=== PATIENT | female | born 1995 | race Caucasian/White ===

== ENCOUNTER 2023-10-03 09:44 | Outpatient (AMB) | payer OTHER, SELFPAY ==
--- NOTE | 2023-10-03 10:00 | MHC.PC.OV ---
Vital Signs 10/03/23 10:02 Height 5 ft 6 in Weight 178 lb BMI 28.7 BP 108/60 Blood Pressure Location Lt brachial Position Sitting Respiration 12 Pulse 97 Pulse Source Pulse Oximeter Pulse Oximetry (%) 98 Oxygen Delivery Method Room Air Intake Visit Reasons: Physical Exam Intake Note: Patient is here to establish care, patient is requesting a physical today, patient reports she has concerns seh would like to discuss with her provider. Agent Licensing Clerk Required: No Allergies nitrofurantoin [Macrobid] Allergy (Unknown, Verified 10/03/23 10:05) Unknown sulfasalazine [Sulfazine] Allergy (Unknown, Verified 10/03/23 10:05) Unresponsive Medication List - Last Reconciled 10/03/23 by Sheeba Pierson MD doxycycline hyclate 100 mg PO BID 10 days triamcinolone acetonide 0.1% 1 appl topical BID valacyclovir (Valtrex) 2,000 mg (2 x 1 gram) PO BID PRN 1 day Tobacco use date assessed: 10/03/23 Dental Screening Dental Screen Date: 10/03/23 Did you have a dental visit in the last 12 months?: Yes Did you have a dental problem in the last 6 months where you did not have access to dental care?: No Was dental information given to patient?: Patient has dentist HPI HPI Comments History of Present Illness Details The patient is a 28 year old with no significant past medical history presenting for physical exam. Transferring from [facility] Gets ear fullness, feels like she is under water. Worse over the past month but started 7 or 8 months ago. Thought initially stress etc. teeth and face have been painful Patient took zyrtec for skin itching within the past year but does not take regularly. 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 Has eczema on hands. Works in a lab. Uses gloves, vaseline at night Needs classified ad taker for annual exam ROS see HPI PHYSICAL EXAM: GENERAL: Alert and oriented x 3. NAD EYES: EOMI. Anicteric. HENT: Moist mucous membranes. No scleral icterus. Bilateral middle ear effusions-clear. some narrowing of right canal No cervical lymphadenopathy. LUNGS: Clear to auscultation bilaterally. CARDIOVASCULAR: Regular rate and rhythm. No murmur. No JVD. ABDOMEN: Soft, non-tender +bs EXTREMITIES: No edema. Non-tender. SKIN: No rashes or lesions. Warm. NEUROLOGIC: No focal neurological deficits. CN II-XII grossly intact PSYCHIATRIC: Cooperative. Appropriate mood and affect [facility] Medical History Chronic right hip pain Recurrent UTI Ganglion cyst of dorsum of left wrist Surgical History History of surgical removal of ganglion cyst History of hip surgery Family History Father Hypertension Clotting disorder Mother High cholesterol Paternal Grandmother Leukemia Maternal Grandfather Skin cancer Other No family history of alcoholism Social History Household Members: Spouse Housing: House Are you a primary animal care attendant to a significant other at home: No Do you presently have visiting nurse or other home services: No 75 years or older and lives alone: No Alcohol intake: current Alcohol intake frequency: holidays/special occasions only Patient Tobacco Use Status: Never used Tobacco e-Cigarette/Vaping Use: Never Used service: Yes (IEV) Current occupational status: employed Current occupation: [employer] Current occupational exposures/hazards: Yes Cognitive needs: No Hearing needs: Yes (headaches associated with ear pressure) Vision needs: Yes (wears glasses) Questionnaire PHQ-9 Over the last 2 weeks, how often have you been bothered by any of the following problems? 1. Little interest or pleasure in doing things: not at all 2. Feeling down, depressed, or hopeless: not at all 3. Trouble falling or staying asleep, or sleeping too much: not at all 4. Feeling tired or having little energy: several days 5. Poor appetite or overeating: not at all 6. Feeling bad about yourself - or that you are a failure or have let yourself or your family down: not at all 7. Trouble concentrating on things, such as reading the newspaper or watching television: not at all 8. Moving or speaking so slowly that other people could have noticed. Or the opposite - being so fidgety or restless that you have been moving around a lot more than usual: not at all 9. Thoughts that you would be better off or of hurting yourself in some way: not at all Total score: 1 Depression Screening Interpretation: Negative (NEG) Depression Screening Done: Yes 23793 - PHQ-9 Billing: Yes Source: Developed by Drs. Derrek Burgos, Gurdeep Franklin and colleagues, with an educational galina from [employer]. Thrive Questionnaire Date Thrive assessed: 10/03/23 I am a: Patient What is your living situation today?: I have a steady place to live Within the past 12 months, did the food you bought not last and you didn't have the money to get more?: Never true Within the past 12 months, did you worry whether your food would run out before you got money to buy more?: Never true Do you have trouble paying for medicines?: No Do you have trouble getting transportation to medical appointments?: No Do you have trouble paying your heating and electricity bill?: No Do you have trouble taking care of your child, family member or friend?: No Do you have trouble with day-to-day activities such as bathing, preparing meals, shopping, managing finances, etc.?: No Are you currently unemployed and looking for a job?: No Are you interested in more education?: No Please select the resources that you would like help with: None Currently or been in a relationship where the following occur: No concerns reported THRIVE Score: 0 ZAFAR-7 AMB Questionnaire ZAFAR-7 Date ZAFAR - 7 assessed: 10/03/23 Feeling nervous, anxious, or on edge: 0 = Not at all Not being able to stop or control worryin = Not at all Worrying too much about different things: 0 = Not at all Trouble relaxin = Not at all Being so restless that it is hard to sit still: 0 = Not at all Becoming easily annoyed or irritable: 0 = Not at all Feeling afraid as if something awful might happen: 0 = Not at all Total ZAFAR-7 score (0-4 normal; 5-9 mild; 10-14 moderate; 15-21 severe): 0 Source: Developed by Drs. Derrek Burgos, Gurdeep Franklin and colleagues, with an educational galina from [employer]. ZAFAR-7 Assessment Billing ZAFAR-7 Assessment Tool: ZAFAR-7 Assessment 33322 Physical exam (Primary Care) Vital Signs: Last Vital Signs Pulse 97 10/03/23 10:02 Resp 12 10/03/23 10:02 BP 108/60 10/03/23 10:02 Pulse Ox 98 10/03/23 10:02 Oxygen Delivery Method Room Air 10/03/23 10:02 BMI result Body Mass Index 28.7 Tobacco/Smoking Status: Tobacco use Status Tobacco use date assessed 10/03/23 10/03/23 10:11 Patient Tobacco Use Status Never used Tobacco 10/03/23 10:12 e-Cigarette/Vaping Use Never Used 10/03/23 10:12 PHQ-9: PHQ-9 Score PHQ-9: Total score 1 10/03/23 10:11 Depression Screening Interpretation: Negative (NEG) Thrive Assessment: Date of Thrive Assessment Date Thrive assessed 10/03/23 10/03/23 10:11 Currently or been in a relationship where the following occur: No concerns reported Assessment and Plan Assessment & Plan (1) Physical exam: Code(s): Z00.00 - Encounter for general adult medical examination without abnormal findings Plan: Preventive measures discussed Referred to central office inspector for routine care (2) Sinus congestion: Code(s): R09.81 - Nasal congestion Plan: Doxycycline x 10 days May start daily zyrtec, nasal spray prn (3) Eczema: Code(s): L30.9 - Dermatitis, unspecified Qualifiers: Eczema type: flexural Qualified Code(s): L20.82 - Flexural eczema (4) Atopy: Code(s): Z88.9 - Allergy status to unspecified drugs, medicaments and biological substances Orders: Referrals [employer] [employer] Referral Z00.00 - Encounter for general adult medical examination without abnormal findings Medications: New valacyclovir (Valtrex) 2,000 mg (2 x 1 gram) PO BID 1 day PRN 20 tabs 3RF cold sore triamcinolone acetonide 0.1% 1 appl topical BID 30 grams 3RF doxycycline hyclate 100 mg PO BID 10 days 20 caps 3RF Coding Level of Care Code New Pt Prev Care 18-39yr(98920 Diagnoses Physical exam Z00.00 Sinus congestion R09.81 Flexural eczema L20.82 Eczema type: flexural Atopy Z88.9 Additional Codes ZAFAR-7 Assessment Billing - ZAFAR-7 Assessment Tool: ZAFAR-7 Assessment [id number] ([id number])
[2023-10-03 10:02] VITALS: BP 108/60; PULSE 97; RESP 12; O2SAT 98; BMI 28.7
== END 2023-10-03 10:46 | disposition home or self-care (01) ==
PROVIDERS: Visit Provider Internal Medicine
DX: Z00.00 Encounter for general adult medical examination without abnormal findings (principal); R09.81 Nasal congestion; L20.82 Flexural eczema; Z88.9 Allergy status to unspecified drugs, medicaments and biological substances
CPT/HCPCS: 99385

== ENCOUNTER 2023-10-27 14:44 | Outpatient (REF) | payer OTHER, SELFPAY ==
--- NOTE | ~2023-10-27 | XR_ITS ---
EXAMINATION: XR SINUSES CLINICAL INFORMATION: Nasal congestion, bilateral sinus pain. COMPARISON: None available. TECHNIQUE: 4 views of the sinuses. FINDINGS: No gross air-fluid levels appreciated in the maxillary sinuses. Right frontal sinus is somewhat hypoplastic relative to the left. Limited visualization due to overlying bony structures. Dedicated CT scan of the sinuses recommended as this study is much more sensitive for evaluation of sinus pathology. XR/XR sinus min 3V IMPRESSION: No gross air-fluid levels appreciated in the maxillary sinuses. Right frontal sinus is somewhat hypoplastic relative to the left. Limited visualization due to overlying bony structures. Dedicated CT scan of the sinuses recommended as this study is much more sensitive for evaluation of sinus pathology.
== END 2023-10-27 14:45 | disposition home or self-care (01) ==
LOC: HO.XRAY 14:44
PROVIDERS: PCP Internal Medicine; Visit Provider Internal Medicine
DX: R09.81 Nasal congestion (principal)
CPT/HCPCS: 70220

== ENCOUNTER 2024-02-15 16:03 | Outpatient (REF) | payer OTHER, SELFPAY ==
--- NOTE | ~2024-02-15 | MR_ITS ---
EXAMINATION: MR BRAIN WITHOUT AND WITH CONTRAST CLINICAL INFORMATION: Headache. COMPARISON: None available. TECHNIQUE: Multiplanar, multisequence MRI of the brain was obtained using a skull base protocol without and following the administration of 7.5 mL of Gadavist intravenous contrast. FINDINGS: No focal restricted diffusion is demonstrated to suggest acute or subacute cerebral ischemia. No evidence of acute or chronic hemorrhagic products on heme-sensitive imaging. Few nonspecific scattered foci of T2 FLAIR hyperintensity within the bifrontal lobes. No additional parenchymal signal abnormalities. The ventricles are normal in morphology and size. No abnormal mass effect. No midline shift. Normal appearance of the pituitary gland. Normal positioning of the cerebellar tonsils. No mass of the cerebellopontine angles. Normal appearance of the cranial nerve V, VII, and VIII nerve roots. No edema or vascular loops near the nerve root entry sites. Normal appearance of the internal auditory canals without enhancing mass lesions. No abnormal enhancement along the course of the facial nerves bilaterally. Normal appearance of the labyrinthine structures without loss of T2 signal or abnormal enhancement. Normal arterial and venous vascular flow voids are present. No abnormal intracranial contrast enhancement. Normal, homogeneous marrow signal. Mild mucosal thickening of the paranasal sinuses. No signal abnormalities within the mastoids. MR/MR head/brain wo/w con IMPRESSION: 1. No acute intracranial abnormalities. No abnormal intracranial enhancement. 2. Mild nonspecific white matter changes. 3. No additional MRI abnormalities to explain the patient's symptoms. Electronically signed by: Herrera Pelaez DO 03/10/2024 07:24 AM [facility]
[2024-02-15] MEDS: gadobutroL 7.5 ML VIAL IVPUSH (16:44)
== END 2024-02-15 16:04 | disposition home or self-care (01) ==
LOC: HO.MRI 16:03
PROVIDERS: PCP Internal Medicine; Visit Provider Internal Medicine
DX: R51.9 Headache, unspecified (principal); H81.90 Unspecified disorder of vestibular function, unspecified ear; H92.09 Otalgia, unspecified ear; G89.29 Other chronic pain
CPT/HCPCS: 70553; A9585

== ENCOUNTER 2024-03-11 10:24 | Outpatient (REF) | payer OTHER, SELFPAY ==
--- OUTSIDE RECORDS SUMMARY | 2024-03-11 10:27 | XMS_ITS ---
Author Name [facility] Organization Unknown Problems Problem Status Onset Date Problem Type Date of Resolution Source Nonintractable headache, unspecified chronicity pattern, unspecified headache type active [facility]
[2024-03-11 12:34] LABS: Syphilis Screen Nonreactive (Nonreactive)
[2024-03-12 18:14] LABS: RPR Rapid Plasma Reagin NON-REACTIVE (NON-REACTIVE)
[2024-03-17 13:58] LABS: Vitamin D 25-OH, D2 <4 ng/mL; Vitamin D 25-OH, D3 26 ng/mL; Vitamin D 25-OH, Total 26 ng/mL (30-100)
== END 2024-03-11 10:25 | disposition home or self-care (01) ==
LOC: HO.LAB 10:24
PROVIDERS: PCP Internal Medicine; Visit Provider Internal Medicine
DX: R42 Dizziness and giddiness (principal)
CPT/HCPCS: 36415; 82306; 86592; 86780

== ENCOUNTER 2024-10-11 08:34 | Outpatient (AMB) | payer OTHER, SELFPAY ==
--- OUTSIDE RECORDS SUMMARY | 2024-10-11 08:40 | XMS_ITS | Encounter Summary ---
Author Organization [facility] Address [address] [place] [address] Phone Care Team Providers Care C Software Developer Name Role Phone Wilma Spencer MD Primary Care Provider [phone] Encounter Details Date Type Department Care Team (Late st Contact Info) Description 11/06/2016 Conversion Encounter [facility] - [address], [address] [place] [address] Wilma Spencer MD [address] [place] [address] Social History Tobacco Use Types Packs/Day Years Used Date Smoking Tobacco: Never Assessed Comments Unknown Sex and Gender Information Value Date Recorded Sex Assigned at Not on file Legal Sex Female 6:30 PM EDT Gender Identity Not on file Sexual Orientation Not on file documented as of this encounter Plan of Treatment Not on file documented as of this encounter Visit Diagnoses Not on filedocumented in this encounter Care Teams C Software Developer Relationship Specialty Start Date End Date Wilma Spencer MD [address] [place] [address] PCP - General 08/12/16 09/24/20 documented as of this encounter
--- OUTSIDE RECORDS SUMMARY | 2024-10-11 08:40 | XMS_ITS | Patient Health Record ---
Author Organization [facility] Address [address] [place] [address] Care Team Providers Care Signal Supervisor Name Role Phone Fransico Guzman M.D Primary Care Provider Keyanna Bey Unavailable [phone] Reason For Referral No Information Medications Medication SIG (Take, Route, Fr equency, Duration) Notes Start Date End Date Status ISOtretinoin 40 MG Orally A ctive Problems No Known Problems Plan Of Treatment Pending Test Test Name Order Date [id number] Plate 12/22/2014 [id number] Plate Each Additional Insurance Providers Payer Name Payer Address Payer Phone Subscriber Number Group Number Insured Name Patient Relationship to Insured Coverage Start Date Coverage End Date [facility] [address] [facility] [id number] Derrek Nagel Child - Insured has Financial Responsibility Medical (General) History Medical History History ICD Code Back,Hip,and Knee pain keloids Broken bones Hip Fracture Surgical History Surgery Date(Month/Year)
--- OUTSIDE RECORDS SUMMARY | 2024-10-11 08:40 | XMS_ITS | Encounter Summary ---
Author Organization [facility] Address [address] [place] [address] Care Team Providers Care Composition Siding Worker Name Role Phone Sheeba Pierson MD Primary Care Provider [phone] Encounter Details Date Type Department Care Team (Late st Contact Info) Description 03/10/2024 Scanned Document [address] [id number] Jesica Chery PA-C [address] [place] [id number] Social History Tobacco Use Types Packs/Day Years Used Date Smoking Tobacco: Never Assessed Comments Unknown Sex and Gender Information Value Date Recorded Sex Assigned at Female 03/15/2024 9:43 AM EST Legal Sex Female 2:18 PM EST Gender Identity Female 03/15/2024 9:43 AM EST Sexual Orientation Not on file documented as of this encounter Plan of Treatment Upcoming Encounters Date Type Department Care Team (Late st Contact Info) Description 10/18/2024 1:00 PM EDT Office Visit [address] [address] Jesica Chery PA-C [address] [place] [id number] documented as of this encounter Visit Diagnoses Not on filedocumented in this encounter Care Teams Composition Siding Worker Relationship Specialty Start Date End Date Sheeba Pierson MD [address] [place] [address] [place] [id number] PCP - General Internal Medicine 02/13/24 documented as of this encounter
--- NOTE | 2024-10-11 08:41 | A.OFFPC_ITS ---
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 Allergies nitrofurantoin (Macrobid) Allergy (Unknown, Verified 10/11/24 08:41) Unknown sulfasalazine (Sulfazine) Allergy (Unknown, Verified 10/11/24 08:41) Unresponsive Tobacco use date assessed: 10/11/24 Dental Screening Dental Screen Date: 10/11/24 Did you have a dental visit in the last 12 months?: Yes Did you have a dental problem in the last 6 months where you did not have access to dental care?: No Was dental information given to patient?: Patient has dentist HPI HPI Comments History of Present Illness Details The patient is a 29 year old with a past medical history of headaches, eczema, thyroid nodule presenting for physical exam Headaches: She is following with neurology. Headaches with improved control. She would like to consider ccb or bb as her bp has been running 120s, 130s. Today is at her old average in the 90s. History of thyroid nodule had biopsy. 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 Had us ROS see HPI PHYSICAL EXAM: GENERAL: Alert and oriented x 3. NAD EYES: EOMI. Anicteric. HENT: Moist mucous membranes. No scleral icterus. No cervical lymphadenopathy. Left thyroid enlargement LUNGS: Clear to auscultation bilaterally. CARDIOVASCULAR: Regular rate and rhythm. No murmur. No JVD. ABDOMEN: Soft, non-tender +bs EXTREMITIES: No edema. Non-tender. SKIN: No rashes or lesions. Warm. NEUROLOGIC: No focal neurological deficits. CN II-XII grossly intact PSYCHIATRIC: Cooperative. Appropriate mood and affect [facility] Medical History Chronic right hip pain Recurrent UTI Ganglion cyst of dorsum of left wrist Surgical History History of surgical removal of ganglion cyst History of hip surgery Family History Father Hypertension Clotting disorder Mother High cholesterol Paternal Grandmother Leukemia Maternal Grandfather Skin cancer Other No family history of alcoholism Social History Household Members: Spouse Housing: House Are you a primary senior care specialist to a significant other at home: No Do you presently have visiting nurse or other home services: No 75 years or older and lives alone: No Alcohol intake: current Alcohol intake frequency: holidays/special occasions only Patient Tobacco Use Status: Never used Tobacco e-Cigarette/Vaping Use: Never Used Substance Use Type: Marijuana service: Yes ([employer]) Current occupational status: employed Current occupation: [employer] Current occupational exposures/hazards: Yes Cognitive needs: No Hearing needs: Yes (headaches associated with ear pressure) Vision needs: Yes (wears glasses) Questionnaire PHQ-9 Over the last 2 weeks, how often have you been bothered by any of the following problems? 1. Little interest or pleasure in doing things: not at all 2. Feeling down, depressed, or hopeless: not at all 3. Trouble falling or staying asleep, or sleeping too much: more than half the days 4. Feeling tired or having little energy: more than half the days 5. Poor appetite or overeating: not at all 6. Feeling bad about yourself - or that you are a failure or have let yourself or your family down: not at all 7. Trouble concentrating on things, such as reading the newspaper or watching television: not at all 8. Moving or speaking so slowly that other people could have noticed. Or the opposite - being so fidgety or restless that you have been moving around a lot more than usual: not at all 9. Thoughts that you would be better off or of hurting yourself in some way: not at all Total score: 4 Depression Screening Interpretation: Negative Depression Screening Done: Yes 68575 - PHQ-9 Billing: Yes Source: Developed by Drs. Derrek Burgos, Mariam He, Gurdeep Shabazz and colleagues, with an educational galina from [employer] Thrive Questionnaire Date Thrive assessed: 10/09/24 I am a: Patient What is your living situation today?: I have a steady place to live Within the past 12 months, did the food you bought not last and you didn't have the money to get more?: Never true Within the past 12 months, did you worry whether your food would run out before you got money to buy more?: Never true Do you have trouble paying for medicines?: No Do you have trouble getting transportation to medical appointments?: No Do you have trouble paying your heating and electricity bill?: No Do you have trouble taking care of your child, family member or friend?: No Do you have trouble with day-to-day activities such as bathing, preparing meals, shopping, managing finances, etc.?: No Are you currently unemployed and looking for a job?: No Are you interested in more education?: No Please select the resources that you would like help with: None Currently or been in a relationship where the following occur: No concerns reported THRIVE Score: 0 AUDIT C Alcohol Use Questionnaire (AUDIT-C) 1. How often do you have a drink containing alcohol?: Monthly or less 2. How many drinks containing alcohol do you have on a typical day when you are drinking?: 1 or 2 3. How often do you have six or more drinks on one occasion?: Never Total Score: 1 ZAFAR-7 AMB Questionnaire ZAFAR-7 Date ZAFAR - 7 assessed: 10/11/24 Feeling nervous, anxious, or on edge: 3 = Nearly every day Not being able to stop or control worryin = More than half the days Worrying too much about different things: 2 = More than half the days Trouble relaxin = Nearly every day Being so restless that it is hard to sit still: 1 = Several days Becoming easily annoyed or irritable: 0 = Not at all Feeling afraid as if something awful might happen: 3 = Nearly every day Total ZAFAR-7 score (0-4 normal; 5-9 mild; 10-14 moderate; 15-21 severe): 14 Source: Developed by Drs. Derrek Burgos, Mariam He, Gurdeep Shabazz and colleagues, with an educational galina from [employer] ZAFAR-7 Assessment Billing ZAFAR-7 Assessment Tool: ZAFAR-7 Assessment 18978 Physical exam (Primary Care) Vital Signs: Last Vital Signs Temp 98.2 F 10/11/24 08:42 Pulse 95 10/11/24 08:42 Resp 12 10/11/24 08:42 BP 94/76 10/11/24 08:42 Pulse Ox 99 10/11/24 08:42 Oxygen Delivery Method Room Air 10/11/24 08:42 BMI result Body Mass Index 29.3 Tobacco/Smoking Status: Tobacco use Status Tobacco use date assessed 10/11/24 10/11/24 08:46 Patient Tobacco Use Status Never used Tobacco 10/11/24 08:46 e-Cigarette/Vaping Use Never Used 10/11/24 08:46 PHQ-9: PHQ-9 Score PHQ-9: Total score 4 10/11/24 08:46 Depression Screening Interpretation: Negative Thrive Assessment: Date of Thrive Assessment Date Thrive assessed 10/09/24 10/11/24 08:46 Currently or been in a relationship where the following occur: No concerns reported Coding Level of Care Code Est Pt Prev Care 18-39y(71795) Diagnoses Encounter for physical examination Z00.00 Additional Codes ZAFAR-7 Assessment Billing - ZAFAR-7 Assessment Tool: ZAFAR-7 Assessment 21465 ([id number]) PHQ-9 - 25952 - PHQ-9 Billing: Yes ([id number]) Assessment & Plan Assessment & Plan (1) Encounter for physical examination: Code(s): Z00.00 - Encounter for general adult medical examination without abnormal find ings Plan Physical exam Interval history reviewed History of thyroid nodule-tfts and us ordered eczema joint pain-labs ordered. tretinoin order Headaches-continue follow up with neurology Orders: Orders Comprehensive Met. Panel Today L20.82 - Flexural eczema, R42 - Dizziness and giddiness, Z13.0 - Encounter for screening for diseases of the blood and blood- forming organs and certain disorders involving the immune mechanism, Z13.220 - Encounter for screening for lipoid disorders, Z13.228 - Encounter for screening for other metabolic disorders Free T4 (Free Thyroxine) Today L20.82 - Flexural eczema, R42 - Dizziness and g iddiness, Z13.0 - Encounter for screening for diseases of the blood and blood- forming organs and certain disorders involving the immune mechanism, Z13.220 - Encounter for screening for lipoid disorders, Z13.228 - Encounter for screening for other metabolic disorders Triiodothyronine T3 Free Today L20.82 - Flexural eczema, R42 - Dizziness and giddiness, Z13.0 - Encounter for screening for diseases of the blood and blood- forming organs and certain disorders involving the immune mechanism, Z13.220 - Encounter for screening for lipoid disorders, Z13.228 - Encounter for screening for other metabolic disorders Thyroid Peroxidase Antibodies Today L20.82 - Flexural eczema, R42 - Dizziness and giddiness, Z13.0 - Encounter for screening for diseases of the blood and blood-forming organs and certain disorders involving the immune mechanism, Z13.220 - Encounter for screening for lipoid disorders, Z13.228 - Encounter for screening for other metabolic disorders Rheumatoid Factor Today L20.82 - Flexural eczema, R42 - Dizziness and giddiness, Z13.0 - Encounter for screening for diseases of the blood and blood- forming organs and certain disorders involving the immune mechanism, Z13.220 - Encounter for screening for lipoid disorders, Z13.228 - Encounter for screening for other metabolic disorders Cyclic Citrullinated Peptide Today L20.82 - Flexural eczema, R42 - Dizziness and giddiness, Z13.0 - Encounter for screening for diseases of the blood and blood-forming organs and certain disorders involving the immune mechanism, Z13.220 - Encounter for screening for lipoid disorders, Z13.228 - Encounter for screening for other metabolic disorders Complete Blood Count Auto Diff Today L20.82 - Flexural eczema, R42 - Dizziness and giddiness, Z13.0 - Encounter for screening for diseases of the blood and blood-forming organs and certain disorders involving the immune mechanism, Z13.220 - Encounter for screening for lipoid disorders, Z13.228 - Encounter for screening for other metabolic disorders Lipid Panel Today L20.82 - Flexural eczema, R42 - Dizziness and giddiness, Z13.0 - Encounter for screening for diseases of the blood and blood-forming organs and certain disorders involving the immune mechanism, Z13.220 - Encounter for screening for lipoid disorders, Z13.228 - Encounter for screening for other metabolic disorders Thyroid Stimulating Hormone Today L20.82 - Flexural eczema, R42 - Dizziness and giddiness, Z13.0 - Encounter for screening for diseases of the blood and blood- forming organs and certain disorders involving the immune mechanism, Z13.220 - Encounter for screening for lipoid disorders, Z13.228 - Encounter for screening for other metabolic disorders Lyme IgG/IgM w/reflex to WB Today L20.82 - Flexural eczema, R42 - Dizziness and giddiness, Z13.0 - Encounter for screening for diseases of the blood and blood- forming organs and certain disorders involving the immune mechanism, Z13.220 - Encounter for screening for lipoid disorders, Z13.228 - Encounter for screening for other metabolic disorders thyroid Today E04.1 - Nontoxic single thyroid nodule Medications: New tretinoin 0.05% 1 appl topical BEDTIME 45 grams 3RF L20.82 - Flexural eczema
--- OUTSIDE RECORDS SUMMARY | 2024-10-11 08:41 | XMS_ITS ---
[facility] Name [facility] Unknown History of Medication Use Medication Directions Dispensed Refills Start Date End Date Stat us Nerve Stimulator (Nerivio) Device Apply 1 Device topically daily as needed (headache). Apply one 45 minute treatment with device within 60 minutes of migraine onset 06/21/2024 active ubrogepant (Ubrelvy) 100 MG tablet Take 1 tablet (100 mg total) by mouth once as needed for migraine. May repeat in 2 hours if unresolved. Do not exceed 200 mg in 24 hours. 06/21/2024 active galcanezumab-gnlm (Emgality) 120 MG/ML injection Inject 1 mL (120 mg total) under the skin every 30 days (once a month). Please dispense autoinjector 04/22/2024 active eletriptan (Relpax) 40 MG tablet Take 1 tablet (40 mg total) by mouth once as needed for migraine. May repeat once in 2 hours if unresolved. Do not exceed 80 mg in 24 hours. Max of 2-3 days per week. 03/17/2024 active Fremanezumab-vfrm (Ajovy) 225 MG/1.5ML Solution Auto-injector Inject 225 mg under the skin every 28 days (4 weeks). 03/17/2024 active Coenzyme Q10 400 MG Cap capsule Take 100 mg by mouth daily. active riboflavin (VITAMIN B-2) 100 MG tablet Take 400 mg by mouth daily. active valGANciclovir HCl (VALCYTE PO) Take 2 g by mouth as needed. active Allergies Allergen Reaction Severity Comment Documented Date Source Statu s SULFA ANTIBIOTICS RASH/DERMATITIS 03/17/[address] active NITROFURANTOIN GI INTOLERANCE/NAUSEA/V OMITING [facility] Problems Problem Status Onset Date Problem Type Date of Resoluti on Source Chronic migraine without aura, with intractable migraine, so stated, with status migrainosus active EncounterDiagnosisAct CCT Encounters Encounter Type Encounter Reason Primary Diagnosis Location Date Ambulatory Chronic migraine without aura, intractable, with status migrainosus Chronic migraine without aura, intractable, with status migrainosus [facility]24 [facility] 03/17/2024 Ambulatory Chronic migraine without aura, intractable, with status migrainosus Chronic migraine without aura, intractable, with status migrainosus [facility] 03/17/2024 Care Team Organization Name Specialty Phone Email Start Date End [facility] 03/21/2024 07/23/19 [facility] 03/10/2024
--- OUTSIDE RECORDS SUMMARY | 2024-10-11 08:41 | XMS_ITS | Data Portability ---
Author Organization [facility], [facility] Address [address] [place] [address] Assessment No assessment recorded. Plan of Treatment Reminders Order Date Submit Date Provider Last Modified By Organization Details Last Modified Time Details Appointments None recorded. Lab urinalysis, dipstick 2023 024 [email or web address] [address], [address] [place], [address], 09:22:38 culture, urine 2023 024 [email or web address] on [facility], [address] [place] [address], [place], [address], 10:33:07 Referral None recorded. Procedures None recorded. Surgeries None recorded. Imaging None recorded. Medication Orders Valtrex 1 gram tablet 2023 024 [email or web address] 247 [facility] #[id number], [address] [place], [address], 13:02:53 cephalexin 500 mg capsule 2023 024 RICHARD [facility]/Pharmacy #[id number], [address] [place], [address], 09:22:38 Patient TargetsNo targets recorded. Patient Instructions Encounter Date Encounter Id Patient Instructions Last Modified By Organization Details Last Modified Time 08/23/2023 [id number] melly sore: car e instructions [email or web address] Not available 08/23/2023 09:22:35 Your symptoms an d urinalysis findings are consistent with a urine infection. We are sending a culture to the lab to confirm and determine if you actually have a UTI, which bacteria is causing it, and whether the medication prescribed is the best choice. We are starting you on antibiotics in the mean time. However there are times when we may need to change the antibiotic if the culture shows that the bacteria found is resistant to the antibiotic initially prescribed. You will get a call with your results and if the antibiotic needs to be changed we will send the appropriate new medication to your pharmacy. Otherwise take the full course of antibiotics and you can follow up with your PCP or urologist if you have one. [email or web address] Not available 08/23/2023 09:22:54 Reason for Referral None Reported. Results Created Date Observation Date Name Description Value Unit Range Abnormal Flag Note LastModifiedBy Organization Detail LastModifiedTime 08/23/1908/23/2023 urina lysis , dipst ick Unknown Analyte Normal = light yellow Not Available [address], [address], 08/23/2023 08:51:24 08/23/1908/23/2023 urina lysis , dipst ick Unknown Analyte Yellow Not Available [address], [address], 08/23/2023 08:51:24 08/23/19 24 08/23/2023 urina lysis , dipst ick Unknown Analyte Normal = clear Not Available [address], [address], 08/23/2023 08:51:24 08/23/19 24 08/23/2023 urina lysis , dipst ick Unknown Analyte Clear Not Available [address], [address], 08/23/2023 08:51:24 08/23/19 24 08/23/2023 urina lysis , dipst ick Unknown Analyte Normal = negati ve Not Available [facility] [address] [place] [address], [address], 08/23/2023 08:51:24 08/23/19 24 08/23/2023 urina lysis , dipst ick Unknown Analyte Negati ve Not Available [facility] [address] [place] [address], [phone], 08/23/2023 08:51:24 08/23/19 24 08/23/2023 urina lysis , dipst ick Unknown Analyte Normal = Negati ve Not Available [facility] [address] [place] [address], [address], 08/23/2023 08:51:24 08/23/1908/23/2023 urina lysis , dipst ick Unknown Analyte Negati ve Not Available [facility] [address] [place] [address], [address], 08/23/2023 08:51:24 08/23/1908/23/2023 urina lysis , dipst ick Unknown Analyte Normal = Negati ve Not Available [facility] [address] [place] [address], [address], 08/23/2023 08:51:24 08/23/1908/23/2023 urina lysis , dipst ick Unknown Analyte Negati ve Not Available [facility] [address] [place] [address], [address], 08/23/2023 08:51:24 08/23/19 24 08/23/2023 urina lysis , dipst ick Unknown Analyte Normal = 1.010, 1.015, 1.020 Not Available [facility], [address], 08/23/2023 08:51:24 08/23/19 08/23/2023 urina lysis , dipst ick Unknown Analyte <=1.00 5 Not Available [facility] [address] [place] [address], [phone], 08/23/2023 08:51:24 08/23/19 24 08/23/2023 urina lysis , dipst ick Unknown Analyte Normal = Negati ve Not Available [facility] [address] [place] [address], [phone], 08/23/2023 08:51:24 08/23/1908/23/2023 urina lysis , dipst ick Unknown Analyte Trace- lysed Not Available [facility] [address], [address], 08/23/2023 08:51:24 08/23/19 24 08/23/2023 urina lysis , dipst ick Unknown Analyte Normal = 6.5, 7.0, 7.5, 8.0 Not Available [facility] [address] [place] [address], [address], 08/23/2023 08:51:24 08/23/19 24 08/23/2023 urina lysis , dipst ick Unknown Analyte 6.0 Not Available [facility] [address], [address], 08/23/2023 08:51:24 08/23/19 24 08/23/2023 urina lysis , dipst ick Unknown Analyte Normal = Negati ve Not Available [facility] [address] [place] [address], [address], 08/23/2023 08:51:24 08/23/19 24 08/23/2023 urina lysis , dipst ick Unknown Analyte Negati ve Not Available [facility] [address] [place] [address], [address], 08/23/2023 08:51:24 08/23/19 24 08/23/2023 urina lysis , dipst ick Unknown Analyte Normal = 0.2, 1.0 Not Available [address], [address], 08/23/2023 08:51:24 08/23/19 24 08/23/2023 urina lysis , dipst ick Unknown Analyte 0.2 E.U./d L Not Available [address], [address], 08/23/2023 08:51:24 08/23/19 24 08/23/2023 urina lysis , dipst ick Unknown Analyte Normal = Negati ve Not Available [address], [address], 08/23/2023 08:51:24 08/23/19 24 08/23/2023 urina lysis , dipst ick Unknown Analyte Negati ve Not Available [address], [address], 08/23/2023 08:51:24 08/23/19 24 08/23/2023 urina lysis , dipst ick Unknown Analyte Normal = Negati ve Not Available [address], [address], 08/23/2023 08:51:24 08/23/19 24 08/23/2023 urina lysis , dipst ick Unknown Analyte Trace Not Available [address], [address], 08/23/2023 08:51:24 Result Notes None recorded. Medical Equipment None Reported. Allergies Allergen ID Allergen Name Allergen Category Reaction Reaction Severity Criticality Documentation Date Start Date Code Code System Note Provider Name and Address Organization Details Recorded Time 711657 Bactrim medicatio n hives severe Not available 08/23/2023 46061 9 RxNorm Evelyn O'Ken null, [place] - [facility] 4 08:45:55 323017 Macrobid medicatio n hives severe Not available 08/23/2023 89019 1 RxNorm Evelyn O'Ken null, [place] - [facility] 08:46:33 425431 Substance with sulfonami de structure and antibacte rial mechanism of action (substanc e) medicatio n hives severe Not available 08/23/2023 24270 8003 SNOMED Evelyn O'Ken null, PA - [facility] 08:47:48 Medications Name Sig Start Date Stop Date Status Note LastModified by Organization Details LastModified Time cephalexin 500 mg capsule Take 2 capsules twice a day by oral route as directed for 7 days, for urine infection. 024 active Not Available Not Available Not Avai lable Valtrex 1 gram tablet Take 2 tablets every 12 hours by oral route as directed for 1 day, for canker sore. 024 active Not Available Not Available Not Avai lable Vitals Date Recorded Body height Body mass index (BMI) Body weight Oxygen saturation Oxygen saturation in Arterial blood by Pulse oximetry Heart rate Body temperature Systolic And Diastolic Provider Name and Address Organization Details Last Updated DateTime 4 167.64 cm 24.5 kg/m2 09459.0 4 g 100 % 100 % 96 /min 98.6 [degF] 112/74 mm[Hg] Evelyn O'Ken PA - [facility] 4 08:45:02 Social History Question Answer Notes LastModified by Organizat ion Details LastModified Time Have You Had A Flu Shot This Season? Yes Information no t available 08/23/2023 Have You Had Direct Contact, Or Contact During Intimacy, With Monkeypox Rash, Scabs, Or Body Fluids From A Person With Monkeypox? No Information not available 08/23/2023 What Is Your Relationship Status? Information not available 08/23/2023 Have You Recently Traveled Abroad? No Information not available 08/23/2023 Sex: Unknown Functional Status Question Answer Note LastModified by Organizat ion Details LastModified Time Do you use any illicit or recreational drugs? No Information not available 08/23/2023 Do you or have you ever used any other forms of tobacco or nicotine? No Information not available 08/23/2023 What is your level of alcohol consumption? None Information not available 08/23/2023 Are you currently employed? Yes Information not available 08/23/2023 Mental Status None recorded. Family History Nothing Reported. Medical History No medical history recorded. Gynecological History Statement/Question Response Date of LMP 08/08/2023 Is there any chance of ? No Obstetrics History GPAL:G 0 P 0 0 0 0 Past Encounters Encounter ID Performer Location Encounter Start Date Encounter Closed Date Diagnosis/Indication Diagnosis SNOMED-CT Code Diagnosis ICD10 Code Diagnosis Note [id number] [facility] [address] [place] [address] 06/13/2015 13:42:44 06/13/2015 14:24:00 [id number] _[facility] [address] [address] 12/14/2017 18:13:11 12/14/2017 19:14:03 [id number] COLLEEN LOMBARDI MD _[address] [address] 08/23/2023 08:20:28 08/23/2023 09:24:39 Dysuria 25506985 R30.0 Pyuria 9235550 R82.81 Herpes simplex 98969880 B00.9 Health Concerns Section Related Observation LastModified by Organization Detai ls LastModified Time None Recorded Concern Status LastModified by Organization Details LastModified Time None Recorded Advance Directives Directive None Recorded Payers Insurance Date Sequence Insurance Name Policy Number Policy Pritchett Covered Member ID Pritchett Member ID Guarantor Name 09/04/2023 1 [employer] () Josy lara [id number] Josy padgett 09/04/2023 1 [facility] [place] Stephen RosalvaCelina jane [id number] Josy padgett 08/23/2023 1 [facility] [id number] 1 Derrek Nagel [id number] Josy padgett Notes Date Note Type Note Provider Name and Address Organization Details Recorded Time 08/23/2023 text/html 28 yo female wit h a hx of recurrent UTIs. The last one was 2 months ago. She presents with a 5 day hx of UTI sxs. She also noticed the development of a cold sore on her lip this morning. She also has a hx of HSV cold sores. COLLEEN LOMBARDI MD [address] [place], [address], [place] - [facility] 08/24/2023 14:50:23 OBGyn Episode No OBEpisode recorded.
[2024-10-11 08:42] VITALS: BP 94/76; PULSE 95; RESP 12; TEMP 36.8; O2SAT 99; BMI 29.3
== END 2024-10-11 09:09 | disposition home or self-care (01) ==
LOC: HO.HMCFM 08:35
PROVIDERS: PCP Internal Medicine; Visit Provider Internal Medicine
DX: Z00.00 Encounter for general adult medical examination without abnormal findings (principal)

== ENCOUNTER → 2024-10-11 08:34 | Outpatient (BNVA) | payer OTHER, SELFPAY | PROVIDERS: PCP Internal Medicine; Visit Provider Internal Medicine | DX: Z00.00 Encounter for general adult medical examination without abnormal findings (principal); R51.9 Headache, unspecified; E04.1 Nontoxic single thyroid nodule; L30.9 Dermatitis, unspecified; Z13.31 Encounter for screening for depression; Z13.30 Encounter for screening examination for mental health and behavioral disorders, unspecified | CPT/HCPCS: 96127 ==

== ENCOUNTER 2024-10-11 09:31 | Outpatient (REF) | payer OTHER, SELFPAY ==
[2024-10-11 11:42] LABS: MANUAL DIFF FLAG NO
[2024-10-11 11:56] LABS: Hematocrit 39.5 % (37.0-47.0); Hemoglobin 13.1 g/dl (12.0-16.0); Imm Gran Abs Auto 0.01 X10*3/uL (0.00-0.03); Imm Gran Pct Auto 0.2 % (0.0-0.4); Lymphocytes Absolute Auto 2.7 X10*3/uL (1.2-4.9); Mean Corpuscular HGB Conc 33.2 g/dl (31.0-35.0); Mean Corpuscular Hemoglobin 28.4 pg (27.0-33.0); Mean Corpuscular Volume 85.7 fL (80.0-98.0); NRBC Abs Auto 0.000 X10*3/uL (0.0-0.012); NRBC Pct Auto 0.0 /100WBC (0.0-0.2); Platelet Count 243 X10*3/uL (160-400); Red Blood Count 4.61 X10*6/uL (4.20-5.50); White Blood Count 6.6 X10*3/uL (4.8-10.8)
[2024-10-11 12:37] LABS: Alanine Aminotransferase 26 U/L (0-31); Albumin Level 4.8 g/dL (3.5-5.0); Alkaline Phosphatase 80 U/L (39-117); Anion Gap 12 (12-20); Aspartate Amino Transferase 33 U/L (5-31); Blood Urea Nitrogen 7 mg/dL (9-16); Calcium 10.0 mg/dL (8.4-10.2); Carbon Dioxide 28 mmol/L (22-29); Chloride 105 mmol/L (96-108); Cholesterol 178 mg/dL (<200); Estimated Glomerular Filt Rate > 60; Free T4 (Free Thyroxine) 0.98 ng/dL (0.71-1.85); HDL Cholesterol 43 mg/dL (>40); Potassium 3.9 mmol/L (3.3-5.1); Sodium 141 mmol/L (135-145); Thyroid Stimulating Hormone 0.70 uIU/mL (0.32-4.0); Total Protein 7.5 g/dL (6.5-8.0); Triglycerides 120 mg/dL (<150)
[2024-10-12 06:24] LABS: Lyme Abs Screen <0.90 index
== END 2024-10-11 09:32 | disposition home or self-care (01) ==
LOC: HO.WFDLDS 09:31
PROVIDERS: Visit Provider Internal Medicine
DX: L20.82 Flexural eczema (principal); R42 Dizziness and giddiness; Z13.0 Encounter for screening for diseases of the blood and blood-forming organs and certain disorders involving the immune mechanism; Z13.220 Encounter for screening for lipoid disorders; Z13.228 Encounter for screening for other metabolic disorders
CPT/HCPCS: 36415; 80053; 80061; 84439; 84443; 84481; 85025; 86200; 86376; 86431; 86617; 86618

== ENCOUNTER 2025-01-04 15:33 | Outpatient (REF) | payer OTHER, SELFPAY ==
--- NOTE | ~2025-01-04 | US_ITS ---
EXAMINATION: US THYROID HISTORY: E04.1 - Nontoxic single thyroid nodule TECHNIQUE: Real-time grayscale ultrasound imaging was performed and images were reviewed. COMPARISON: There are no prior studies available for comparison. FINDINGS: SIZE: The right thyroid lobe measures 5.2 x 1.6 x 1.5 cm. The left thyroid lobe measures 5.3 x 1.3 x 1.8 cm. The isthmus measures 3 mm. FLOW: Flow to the gland is normal. ECHOGENICITY: The echotexture of the gland is mildly heterogeneous. NODULES: Scattered nodules are seen in both thyroid lobes as described below: Nodule #: 1 Location: Midportion of the right thyroid lobe measuring 4 x 3 x 5 mm. Shape: Wider than tall (0 points) Margins: Smooth (0 points) Echotexture: Hypoechoic (2 points) Composition: Solid (2 points) Calcifications: None (0 points) Total points: 4 TIRADS: TR4: Moderately suspicious. Nodule #: 2 Location: Midportion of the right thyroid lobe measuring 3 x 2 x 3 mm. Shape: Wider than tall (0 points) Margins: Smooth (0 points) Echotexture: Hypoechoic (2 points) Composition: Mostly solid (2 points) Calcifications: None (0 points) Total points: 4 TIRADS: TR4: Moderately suspicious. Nodule #: 3 Location: Midportion of the left thyroid lobe measuring 6 x 4 x 6 mm. Shape: Wider than tall (0 points) Margins: Smooth (0 points) Echotexture: Hypoechoic (2 points) Composition: Mixed (1 point) Calcifications: None (0 points) Total points: 3 TIRADS: TR3: Mildly suspicious. US/US thyroid IMPRESSION: Subcentimeter bilateral thyroid nodules as described. According to ACR TI-RADS guidelines, no specific follow-up is recommended. ACR TI-RADS Guidelines TR1 (0 points): Benign. No follow-up or biopsy required TR2 (2 points): Not Suspicious. No biopsy or follow up indicated TR3 (3 points): Mildly Suspicious. FNA if >= 2.5 cm, Follow if >= 1.5 cm TR4 (4-6 points): Moderately Suspicious. FNA if >= 1.5 cm, Follow if >= 1.0 cm TR5 (>=7 points): Highly Suspicious. FNA if >= 1.0 cm, Follow if >= 0.5 cm Electronically signed by: Derrek Garrison MD 01/05/2025 07:04 AM EDT
--- OUTSIDE RECORDS SUMMARY | 2025-01-04 18:37 | XMS_ITS | Encounter Summary ---
Author Organization [facility] Address [address] [place] [address] Care Team Providers Care Workforce Development Vice President Name Role Phone Sheeba Pierson MD Primary Care Provider [phone] Encounter Details Date Type Department Care Team (Late st Contact Info) Description 03/10/2024 Scanned Document [address] [phone] Jesica Chery PA-C [address] [place] [address] Social History Tobacco Use Types Packs/Day Years [...] Care Team (Late st Contact Info) Description 01/28/2025 3:00 PM EDT Office Visit [address] [address] Jesica Chery PA-C [address] [place] [address] documented as of this encounter Visit Diagnoses Not on filedocumented in this encounter Care Teams Workforce Development Vice President Relationship Specialty Start Date End Date Sheeba Pierson MD [address] [place] [address] [place]ENIA Piedra [phone] PCP - General Internal Medicine 02/13/24 documented as of this encounter
--- OUTSIDE RECORDS SUMMARY | 2025-01-04 18:37 | XMS_ITS | Clinical Summary ---
Author Organization [facility] Address [address] [facility] [address] [place] [address] Phone Care Team Providers Care Kitchen Designer Name Role Phone Sheeba Thrasher MD Primary Care Provider [phone] Allergies Active Allergy Reactions Criticality Noted Date Comments Nitrofurantoin Monohyd/M-Cryst Hives 05/01/2017 Sulfa (Sulfonamide Antibiotics) 01/11/2019 Per box brander, do not take. Medications ubidecarenone/v itamin E mixed (COQ10 SG 100 ORAL) Take by mouth. Activ e cholecalciferol , vitamin D3, 50 mcg (2,000 unit) Chew 5 Active NERIVIO DIGITAL LISA, MIGRAINE, Misc USE ONE 45 MINUTE TREATMENT WITHIN 60 MINUTES OF MIGRAINE ONSET 5 Active propranoloL (INDERAL LA) 60 mg 24 hr capsule 5 Active tretinoin (RETIN-A) 0.05 % cream 5 Active UBRELVY 100 mg tablet 5 Active valACYclovir (VALTREX) 1000 MG tablet Take 1,000 mg by mouth. 5 Active Active Problems Problem Noted Date Diagnosed Date Acne vulgaris 02/18/2017 Atypical squamous cells of u ndetermined significance on cytologic smear of cervix (ASC-US) 02/18/2017 Recurrent UTI 02/18/2017 Encounters Date Type Department Care Team Description 10/22/2024 2:30 PM EDT Office Visit [facility] [address] [place] [address] [place] [address] Luzmaria Cervantes MD Topton's gland cyst (Primary Dx) 10/06/2024 12:25 PM EDT - 10/06/2024 11:59 PM EDT Hospital Encounter [facility], [facility] [address] [place] [address] Luzmaria Cervantes MD Discharge Disposition: Home or Self Care from Last 3 Months Immunizations Immunization Administration Dates Next Due COVID-19 (Pre-01/20) Moderna Vaccine, mRNA, PF 04/25/2020,03/28/2020 COVID-19 (Pre-01/20) Pfizer Vaccine, mRNA, PF 05/04/2021 DTaP 02/15/1998, 6,1994,05/29,1994 HPV,quadrivalent 12/22/2006,08/12/2006, 7 Hepatitis B 1994,1994,1994 Hib,PRP-T 04/30/1995, 5,1994,03/27 INFLUENZA, SPLIT VIRUS, TRIV ALENT W/ PRESERVATIVE IM 01/20/2016,12/31/2014 Influenza Quadrivalent Prese rvative Free IM 02/01/2021 Influenza Quadrivalent w/ Pr eservative IM 01/13/2020,01/13/2020 Influenza quadrivalent nasal 01/10/2012 Influenza, Unspecified Formulation 12/20/2008,,02/25/2007 MMR 04/20/1995 Meningococcal MCV4P 10/14/2011,06/11/2006 Polio - OPV 02/15/1998, 5,1994,03/27 Tdap 05/01/2017,06/11/2006 Varicella 08/13/2007,07/23/1995 Social History Tobacco Use Types Packs/Day Years Used Date Smoking Tobacco: Never Smokeless Tobacco: Never Alcohol Use Standard Drinks/Week Comments Not Currently 0 (1 standard drink = 0.6 oz pur e alcohol) Education Answer Date Recorded Are you interested in more education? Not on samara e 07/26/2022 Are you concerned about learning? Not on file 07/26/2022 No 07/26/2022 No 07/26/2022 Digital Access Answer Date Recorded No 08/26/2022 No 08/26/2022 Reliable internet access at home? Not on file 08/26/2022 Device with a working camera? 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 Not on file Not on file Not on file Last Filed Vital Signs Vital Sign Reading Time Taken Comments Blood Pressure 108/68 10/22/2024 2:32 PM EDT Pulse 83 01/11/2019 8:06 AM EDT Temperature 36.3 C (97.3 F) 01/11/2019 8:06 AM EDT Respiratory Rate - - Oxygen Saturation 100% 01/11/2019 8:06 AM EDT Inhaled Oxygen Concentration - - Weight 82.3 kg (181 lb 6.4 oz) 10/22/2024 2:32 P M EDT Height 165.1 cm (5' 5 ) 10/22/2024 2:32 PM EDT Body Mass Index 30.19 10/22/2024 2:32 PM EDT Plan of Treatment Upcoming Encounters Date Type Department Care Team (Late st Contact Info) Description 01/18/2025 10:00 AM EDT Office Visit Urogynecology and Reconstructive Pelvic Surgery [address] [facility], [address] [place] [address] Leticia Knowles MD [address] [place] [address] [email or web address] Health Maintenance Due Date Last Done Comments DEPRESSION SCREENING 2006 HEPATITIS C SCREENING 01/22/2012 HIV ONE-TIME SCREENING (18-65 YEARS) 01/22/2012 INFLUENZA VACCINE (#1) 2024 4, 02/01/2021, 01/13/2020, Additional history exists COVID-19 VACCINE (5 - 2025- season) 2024 05/04/2021, 05/04/2021, 04/25/2020, Additional history exists PAP SMEAR 02/22/2027 02/23/2024, 08/29, 05/08/2017, Additional history exists Adult Td,Tdap Booster 05/01/2027 05/01/2017 , 11/27/2012, 06/11/2006 HIB VACCINES Completed 04/30/1995, 05/1994, 1994, Additional history exists MENINGOCOCCAL VACCINES (ACWY) Completed 11/27/2012, 10/14/2011, 06/11/2006 SMOKING STATUS SCREENING (Once After 26 Yrs) Completed 10/22/2024 HEPATITIS A VACCINES Aged Out No long er eligible based on patient's age to complete this topic MENINGOCOCCAL VACCINES (B) Aged Out N o longer eligible based on patient's age to complete this topic PNEUMOCOCCAL VACCINES (0-49 years) Aged Out No longer eligible based on patient's age to complete this topic Medical Devices Not on file Procedures Procedure Name Priority Date/Time Associated Diagnosis Comments US PELVIC WALL Routine 10/06/2024 1:15 PM EDT Vulvar lesion PAP TEST Routine 02/23/2024 12:00 AM EST from Last 3 Months or Most Recently Relevant to Health Maintenance Results * US Pelvic Wall (10/06/2024 1:15 PM EDT) Anatomical Region Laterality Modality Pelvis, Uterus/Adnexa Ultrasound 10/06/2024 2:59 PM EDT Impressions 10/06/2024 3:04 PM EDT Isoechoic 2.5 cm nodule in the region of clinical concern, in this location, potentially a Bartholin's gland cyst with hemorrhagic/proteinaceous debris. MRI could be considered for further evaluation if warranted clinically. Narrative 10/06/2024 3:04 PM EDT US PELVIC WALL Referring clinician's provided indication for this examination in Epic: Other Indication (Please use free text); small mass on mons pubis TECHNIQUE: US Pelvic wall. COMPARISON: None FINDINGS: Abdominal wall: Targeted ultrasound was performed of the area of clinical concern along the margins pubis/labia. In the region of clinical concern, there is an isoechoic avascular nodule measuring 2.5 x 0.9 x 1.2 cm. Procedure Note Russell Mccall MD - 10/06/2024 US PELVIC WALL Referring clinician's provided indication for this examination in Epic:Other Indication (Please use free text); small mass on mons pubis TECHNIQUE: US Pelvic wall. COMPARISON: None FINDINGS: Abdominal wall: Targeted ultrasound was performed of the area of clinicalconcern along the margins pubis/labia. In the region of clinical concern, there is an isoechoic avascular nodulemeasuring 2.5 x 0.9 x 1.2 cm. IMPRESSION: Isoechoic 2.5 cm nodule in the region of clinical concern, in thislocation, potentially a Bartholin's gland cyst withhemorrhagic/proteinaceous debris. MRI could be considered for furtherevaluation if warranted clinically. us Luzmaria Cervantes MD IMG US PELVIS Final Result * Pap Test (02/23/2024 12:00 AM EST) 02/23/2024 02/24/2024 10: 13 AM EST Narrative SEE NARRATIVE - 03/01/2024 3:02 PM EST [address] [address] Associate: Nav Hicks MD ZUMBA INSTRUCTOR Cytology Report FINAL DIAGNOSIS A. PAP SMEAR (THIN PREP) CE: SPECIMEN ADEQUACY: Satisfactory for evaluation; transformation zone absent/insufficient. INTERPRETATION: NEGATIVE FOR INTRAEPITHELIAL LESION OR MALIGNANCY. This specimen was analyzed by the automated ThinPrep Imaging System (APGR Green Torey.) and the selected bonilla were reviewed by a supply chain analyst. Electronically Signed Out By: KASHMIR Godinez(ASCP) The Pap test is a screening test primarily for squamous cancers and precursors and has associated false-negative and false-positive results. New technologies such as liquid-based preparations may decrease but will not eliminate all false-negative results. Regular sampling and follow-up of unexplained clinical signs and symptoms are recommended to minimize false negative results. PROCEDURES/ADDENDA HPV Testing (Requested) Ordered Date: 02/24/2024 A. PAP SMEAR (THIN PREP) CE: High-risk HPV Panel w/ extended genotyping NEG HPV 16-NEG HPV 18-NEG HPV 45-NEG HPV 33/58-NEG HPV 31-NEG HPV 56/59/66-NEG HPV 51-NEG HPV 52-NEG HPV 35/39/68-NEG Performed by real-time polymerase chain reaction (PCR) at [facility], [address] [place] [address] using the FDA-approved Exploretrip Onclarity9 HPV Assay with extended genotyping. Uses of the assay in scenarios other than those approved by the FDA should be considered off-label use. The accuracy and precision of this test for all other off-label specimen sources has been verified in the Cytopathology Laboratory of the [facility] and has not been cleared or approved by the U.S. Food and Drug Administration. Clinical correlation is advised. The assay assesses the E6/E7 DNA target and utilizes human beta globin as an internal control. Cytology and HPV testing are screening assays and should not be used as the sole means of detecting cancer. False-positives and false-negatives can occur. CLINICAL HISTORY Date of Last Menstrual Period: 02-14-2024 Contraceptive History: BCPs Other Clinical Conditions: Screening Pap SPECIMEN SOURCE A: PAP SMEAR (THIN PREP) CE Patient Name: JOSY WEBER : 1995 (Age: 29) Sex: F Institution: [facility] Location: [facility] Date of Collection: 02/23/2024 Date of Reported: 03/01/2024 15:02 Results to: Luzmaria Cervantes MD us Luzmaria Cervantes MD CYTOLOGY ORDERABLES Final Resu lt SEE NARRATIVE from Last 3 Months or Most Recently Relevant to Health Maintenance Insurance [facility] [place] [id number] [facility] Care Teams Kitchen Designer Relationship Specialty Start Date End Date Sheeba Tharsher MD PCP - General Internal Medicine 10/12/24 Additional Source Comments The information contained in this document represents components of the legal health record. It is not the complete legal health record.[facility]
--- OUTSIDE RECORDS SUMMARY | 2025-01-04 18:37 | XMS_ITS | Clinical Summary ---
Author Organization [facility] Address [address] [place] [address] Care Team Providers Care Silk Screen Layout Drafter Name Role Phone Sheeba Pierson MD Primary Care Provider [phone] Allergies Active Allergy Reactions Criticality Noted Date Comments Nitrofurantoin GI Intolerance/Nausea/Vomiting Low 1 05/18/2023 Sulfa Antibiotics Rash/Dermatitis Low 03/17/2024 Medications valGANciclovir HCl (VALCYTE PO) Take 2 g by mouth as needed. Active ubrogepant (Ubrelvy) 100 MG tabletIndicatio ns:Chronic migraine without aura, with intractable migraine, so stated, with status migrainosus Take 1 tablet (100 mg total) by mouth once as needed for migraine. May repeat in 2 hours if unresolved. Do not exceed 200 mg in 24 hours. 16 tablet 3 06/22/19 25 Active Nerve Stimulator (Nerivio) DeviceIndicatio ns:Chronic migraine without aura, with intractable migraine, so stated, with status migrainosus Apply 1 Device topically daily as needed (headache). Apply one 45 minute treatment with device within 60 minutes of migraine onset 1 each 5 06/22/19 25 Active propranolol (INDERAL LA) 60 MG 24 hr capsuleIndicati ons:Chronic migraine without aura, with intractable migraine, so stated, with status migrainosus TAKE 1 CAPSULE BY MOUTH EVERY DAY 90 capsule 2 12/10/19 25 Active propranolol (INDERAL LA) 60 MG 24 hr capsuleIndicati ons:Chronic migraine without aura, with intractable migraine, so stated, with status migrainosus Take 1 capsule (60 mg total) by mouth daily. 30 capsule 3 10/19/19 25 025 Discontinued Encounters Date Type Department Care Team Description 12/08/[address] [place] [address] Jesica Chery PA-C Chronic migraine without aura, with intractable migraine, so stated, with status migrainosus 11/23/[address] [place] [address], [place] [address] Marilu Shepherd PA 10/18/2024 1:00 PM EDT Office Visit [address] [place] [address], [place] [address] Jesica Chery PA-C Chronic migraine without aura, with intractable migraine, so stated, with status migrainosus (Primary Dx) 10/18/2024 Travel from Last 3 Months Social History Tobacco Use Types Packs/Day Years Used Date Smoking Tobacco: Never Smokeless Tobacco: Never Tobacco Cessation:Counseling Given: Not Answered Alcohol Use Standard Drinks/Week Comments Not Currently 0 (1 standard drink = 0.6 oz pur e alcohol) PHQ-2 Answer Date Recorded PHQ-2 Total Score 0 10/16/2024 [facility] [place] of Occupat ional Health - Occupational Stress Questionnaire Answer Date Recorded Do you feel stress - tense, restless, nervous, or anxious, or unable to sleep at night because your mind is troubled all the time - these days? Rather much 10/18/2024 Physical Activity Answer Date Recorded On average, how many days pe r week do you engage in moderate to strenuous exercise (like a brisk walk)? 1 day 10/18/2024 On average, how many minutes do you exercise per day at this level? 30 min 10/18/2024 Comments No Sex and Gender Information Value Date Recorded Sex Assigned at Female 03/15/2024 9:43 AM EST Legal Sex Female 2:18 PM EST Gender Identity Female 03/15/2024 9:43 AM EST Sexual Orientation Not on file Last Filed Vital Signs Vital Sign Reading Time Taken Comments Blood Pressure 120/77 10/18/2024 12:47 PM EDT Pulse 84 10/18/2024 12:47 PM EDT Temperature - - Respiratory Rate 14 10/18/2024 12:47 PM EDT Oxygen Saturation 99% 10/18/2024 12:47 PM EDT Inhaled Oxygen Concentration - - Weight 77.1 kg (170 lb) 10/18/2024 12:47 PM EDT Height 165.1 cm (5' 5 ) 10/18/2024 12:47 PM EDT Body Mass Index 28.29 10/18/2024 12:47 PM EDT Plan of Treatment Upcoming Encounters Date Type Department Care Team (Late st Contact Info) Description 01/28/2025 3:00 PM EDT Office Visit [facility] [address] [phone] Jesica Chery PA-C 65 [facility] Ed [address] [place] [phone] Health Maintenance Due Date Last Done Comments Hepatitis C Virus Screening 1994 HIV Screening 2007 DTaP/Tdap/Td Vaccines (1 - Tdap) 2013 Hepatitis B Vaccines (1 of 3 - 19+ 3-dose series) 2013 Pap Smear (Ages 21-65) 2015 Influenza Vaccine 10/29/2024 01/22/2024, , 01/13/2020, Additional history exists COVID-19 Vaccine (2024- season) 2024 05/04/2021, 04/25/2020, 03/28/2020 HPV Vaccines (No Doses Required) Completed Pneumococcal Vaccine: Pediatric (0-5 Years) and At-Risk Patients (6 to 49 Years) Aged Out No longer eligible based on patient's age to complete this topic Care Teams Silk Screen Layout Drafter Relationship Specialty Start Date End Date Sheeba Pierson MD [address] [place] [phone] PCP - General Internal Medicine 02/13/24
--- OUTSIDE RECORDS SUMMARY | 2025-01-04 18:37 | XMS_ITS | Encounter Summary ---
Author Organization [facility] Address [address] [place] [address] Care Team Providers Care Leader Tier Name Role Phone Sheeba Pierson MD Primary Care Provider [phone] Encounter Details Date Type Department Care Team (Late st Contact Info) Description 03/17/2024 Scanned Document [facility] [address] [phone] Jesica Chery PA-C [address] [place] [address] Social History Tobacco Use Types Packs/Day Years Used Date Smoking Tobacco: Never Smokeless Tobacco: Never Alcohol Use Standard Drinks/Week Comments Not Currently 0 (1 standard drink = 0.6 oz pur e alcohol) PHQ-2 Answer Date Recorded PHQ-2 Total Score 0 03/15/2024 [facility] [place] of Occupat ional Health - Occupational Stress Questionnaire Answer Date Recorded Do you feel stress - tense, restless, nervous, or anxious, or unable to sleep at night because your mind is troubled all the time - these days? Only a little 03/17/2024 Physical Activity Answer Date Recorded On average, how many days pe r week do you engage in moderate to strenuous exercise (like a brisk walk)? 4 days 03/17/2024 On average, how many minutes do you exercise per day at this level? 50 min 03/17/2024 Comments Unknown Sex and Gender Information Value Date Recorded Sex Assigned at Female 03/15/2024 9:43 AM EST Legal Sex Female 2:18 PM EST Gender Identity Female 03/15/2024 9:43 AM EST Sexual Orientation Not on file documented as of this encounter Functional Status documented as of this encounter Plan of Treatment Upcoming Encounters Date Type Department Care Team (Late st Contact Info) Description 01/28/2025 3:00 PM EDT Office Visit [facility] [address] [phone] Jesica Chery PA-C [address] [address] documented as of this encounter Visit Diagnoses Not on filedocumented in this encounter Care Teams Leader Tier Relationship Specialty Start Date End Date Sheeba Pierson MD [address] [place] [phone] PCP - General Internal Medicine 02/13/24 documented as of this encounter
--- OUTSIDE RECORDS SUMMARY | 2025-01-04 18:37 | XMS_ITS | Encounter Summary ---
Author Organization [facility] Address [address] [facility] [address] [place] [phone] Phone Care Team Providers Care Improvement Leader Name Role Phone Nav Fischer MD Primary Care Provider [phone] Ludmila Lopez EQUITY ANALYST Unavailable [phone] Michell Mesa FRENCH DRAWER Unavailable [phone] Nav Fischer MD Unavailable [phone] Unknown, Unknown Primary Care Provider Sheeba Chambers MD Primary Care Provider [phone] Sheeba Thrasher MD Primary Care Provider Encounter Details Date Type Department Care Team (Latest Contact Info) Description 11/03/2017 Transcribe Orders [facility] Laboratory [address] [place] [address] Julia Keita ARNP Pre-employment examination (Primary Dx) Social History Tobacco Use Types Packs/Day Years Used Date Smoking Tobacco: Never Smokeless Tobacco: Never Comments Unknown Sex and Gender Information Value Date Recorded Sex Assigned at Female 01/10/2019 9:34 PM EDT Legal Sex Female 9:12 AM EDT Gender Identity Female 01/10/2019 9:34 PM EDT Sexual Orientation Not on file 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 Not on file Not on file documented as of this encounter Plan of Treatment Upcoming Encounters Date Type Department Care Team (Late st Contact Info) Description 01/18/2025 10:00 AM EDT Office Visit Urogynecology and Reconstructive Pelvic Surgery [address] [facility], [address] [place] [address] Leticia Knowles MD [address] [facility] [address], [place] [address] [email or web address] documented as of this encounter Results * T spot TB test (11/03/2017 10:56 AM EDT) T SPOT Tuberculosis [facility] Blood 11/03/2017 10:5 6 AM EDT 11/03/2017 10:59 AM EDT us Julia Keita [facility] BLOOD ORDERABLES Final Result Performing Organization Address City/State/[facility] Co de Phone Number [facility] [address] [place] [address] documented in this encounter Visit Diagnoses Diagnosis Pre-employment examination- Primary documented in this encounter Additional Health Concerns Infection Onset Date Last Indicated Resolved Time CoV-Risk 04/01/2020 04/02/2020 04/11/2020 1:25 AM EST documented as of this encounter Care Teams Improvement Leader Relationship Specialty Start Date End Date Nav Fischer MD [address] [place] [address], [address] [place] [address] PCP - General 01/16/17 11/03/23 Unknown, Unknown, PCP - General 02/10/24 02/22/24 Sheeba Thrasher MD PCP - General Internal Medicine 02/23/24 10/11/24 Sheeba Thrasher MD PCP - General Internal Medicine 10/12/24 Ludmila Lopez NP 1 [facility] [address] Historical LMR Provider 01/16/17 2 Michell Mesa CNP [address] [facility], 2nd [place] [address] Historical LMR Provider 01/16/17 04/07/21 Nav Fischer MD [address] [facility], [address] [place] [address] [email or web address] Historical LMR Provider 01/16/17 11/03/23 documented as of this encounter Additional Source Comments The information contained in this document represents components of the legal health record. It is not the complete legal health record.[facility]
--- OUTSIDE RECORDS SUMMARY | 2025-01-04 18:37 | XMS_ITS | Clinical Summary ---
Author Organization [facility] Address [address] [place] [address] Phone Care Team Providers Care Commodity Manager Name Role Phone Unavailable Primary Care Provider Unavailabl e Immunizations Immunization Administration Dates Next Due DTaP 02/15/1998, 6,1994, 995,1994 HPV, Quadrivalent 12/22/2006,08/12/2006,06/12/19 07 Hep B, ped/adol 1994,1994,1994 Hib (PRP-T) 04/30/1995, 5,1994, 994 Influenza 12/20/2008,02/24/2008,02/25/2007 Influenza, intranasal, trivalent 01/10/2012 MMR 04/20/1995 Meningococcal Conj (Menactra) MCV4P 10/14/2011,0 06/11/2006 OPV 02/15/1998, 5,1994, 994 Tdap 06/11/2006 Varicella 08/13/2007,07/23/1995 Family History Relation Name Status Comments Mother Mother: hyperli pidemia Other hyperlipidemia Social History Tobacco Use Types Packs/Day Years Used Date Smoking Tobacco: Never Assessed Comments Unknown Sex and Gender Information Value Date Recorded Sex Assigned at Not on file Legal Sex Female 6:30 PM EDT Gender Identity Not on file Sexual Orientation Not on file Last Filed Vital Signs Vital Sign Reading Time Taken Comments Blood Pressure 108/70 09/03/2012 12:00 AM EDT Pulse 93 09/03/2012 12:00 AM EDT Temperature 37.2 C (98.9 F) 01/10/2012 12:00 AM EDT Respiratory Rate - - Oxygen Saturation - - Inhaled Oxygen Concentration - - Weight 62 kg (136 lb 9.6 oz) 09/03/2012 12:00 AM EDT Height 166.4 cm (5' 5.5 ) 09/03/2012 12:00 AM ED T Body Mass Index 22.39 09/03/2012 12:00 AM EDT Plan of Treatment Health Maintenance Due Date Last Done Comments DTaP,Tdap,and Td Vaccines (7 - Td or Tdap) 06/11/2016 06/11/2006, 02/15/1998, 07/23/1995, Additional history exists Influenza Vaccines (#1) 2024 01/10/20 12, 12/20/2008, 02/24/2008, Additional history exists COVID-19 Vaccine ( season) 2024 Hepatitis B Vaccines Completed 1994, 1994, 1994 MMR Vaccines Completed 04/20/1995 HIB Vaccines Completed 04/30/1995, 05/1994, 1994, Additional history exists IPV Vaccines Completed 02/15/1998, 05/1994, 1994, Additional history exists HPV Vaccines Completed 12/22/2006, 07/29, 06/11/2006 Varicella Vaccines Completed 08/13/2007, 07/23/1995 Meningococcal Vaccine Completed 10/14/2011, 007 Hepatitis A Vaccines Aged Out No long er eligible based on patient's age to complete this topic Men B Vaccine Aged Out No longer elig ible based on patient's age to complete this topic Pneumococcal Vaccine Aged Out No long er eligible based on patient's age to complete this topic Procedures * Due to [place] [employer] law, this organization might not be sharing sensitive test results. Procedure Name Priority Date/Time Associated Diagnosis Comments CHLAMYDIA DNA PROBE, DIRECT Routine 10/08/2011 12:00 AM EDT from Last 3 Months or Most Recently Relevant to Health Maintenance Results * Due to [place] [employer] law, this organization might not be sharing sensitive test results. * Chlamydia DNA probe, direct (10/08/2011 12:00 AM EDT) CHLAMYDIA SOURCE URINE CON VERTED LABS Comment: Antonio Benítez 10/03/2011 12:08:55 PM > , Urine sample labeled and sent to [facility] Wilma Spencer 10/08/2011 04:21:06 PM > Negative Reason: Received -[facility] Chlamydia trachomatis amplified RNA(Conversion) Negative CONVERTED LABS Comment: Antonio Benítez 10/03/2011 12:08:55 PM > , Urine sample labeled and sent to [facility] Wilma Spencer 10/08/2011 04:21:06 PM > Negative Reason: Received -[facility] CHLAMYDIA TRACHOMATIS AMPLIFIED RNA Negative CONVERTED LABS Comment: Antonio Benítez 10/03/2011 12:08:55 PM > , Urine sample labeled and sent to [facility] Wilma Spencer 10/08/2011 04:21:06 PM > Negative Reason: Received -[facility] 10/08/2011 Narrative CONVERTED LABS - 10/08/2011 12:00 AM EDT Chlamydia DNA Probe us Wilma Spencer MD LAB MICROBIOLOGY - GENERAL OR DERABLES Final Result CONVERTED LABS from Last 3 Months or Most Recently Relevant to Health Maintenance
--- OUTSIDE RECORDS SUMMARY | 2025-01-04 18:37 | XMS_ITS | Encounter Summary ---
Author Organization [facility] Address [address] [place] [address] Care Team Providers Care Shovel Mechanic Name Role Phone Sheeba Pierson MD Primary Care Provider Encounter Details Date Type Department Care Team (Late st Contact Info) Description 03/18/2024 Scanned Document [facility] - [address] [place] [phone] Jesica Chery PA-C [address] [place] [address] Social History Tobacco Use Types Packs/Day Years Used Date Smoking Tobacco: Never Smokeless Tobacco: Never Alcohol Use Standard Drinks/Week Comments Not Currently 0 (1 standard drink = 0.6 oz pur e alcohol) PHQ-2 Answer Date Recorded PHQ-2 Total Score 0 03/15/2024 [facility] [place] of Occupat ional Health - Occupational Stress [...] Description 01/28/2025 3:00 PM EDT Office Visit [facility] [place] [address] [phone] Jesica Chery PA-C [address] [phone] documented as of this encounter Visit Diagnoses Not on filedocumented in this encounter Care Teams Shovel Mechanic Relationship Specialty Start Date End Date Sheeba Pierson MD [address] [place] [phone] PCP - General Internal Medicine 02/13/24 documented as of this encounter
--- OUTSIDE RECORDS SUMMARY | 2025-01-04 18:37 | XMS_ITS | Encounter Summary ---
Author Organization [facility] Address [address] [place] [address] Phone Care Team Providers Care Ug Designer Name Role Phone Wilma Spencer MD Primary Care Provider [phone] Encounter Details Date Type Department Care Team (Late st Contact Info) Description 11/06/2016 Conversion Encounter [facility] - [address], [address] [place] [address] Wilma Spencer MD [address] [place] [address] Social History Tobacco Use Types Packs/Day Years [...] on filedocumented in this encounter Care Teams Ug Designer Relationship Specialty Start Date End Date Wilma Spencer MD [address] [place] [address] PCP - General 08/12/16 09/24/20 documented as of this encounter
== END 2025-01-04 15:34 | disposition home or self-care (01) ==
LOC: HO.US 15:33
PROVIDERS: PCP Internal Medicine; Visit Provider Internal Medicine
DX: E04.1 Nontoxic single thyroid nodule (principal)
CPT/HCPCS: 76536

== ENCOUNTER → 2025-01-04 15:35 | Outpatient (BNV) | payer OTHER, SELFPAY | PROVIDERS: PCP Internal Medicine; Visit Provider Radiology Diagnostic Radiology | DX: E04.2 Nontoxic multinodular goiter (principal) | CPT/HCPCS: 76536 ==